=== PATIENT | female | born 1960 | race American Indian/Alaskan Native ===

== ENCOUNTER 2016-12-02 16:08 | Emergency (ER) | payer MEDICARE ==
[2016-12-02] MEDS ORDERED: XYLOCAINE/D5W 2GM/500ML DRIP IV ONE (16:20)
[2016-12-02] MEDS ORDERED: NARCAN 2 MG/2 ML ONE (16:20)
[2016-12-02] MEDS ORDERED: INTROPIN DRIP 800 MG/D5W 250 ML IV ONE (16:20)
[2016-12-02] MEDS ORDERED: ATROPINE 0.1% (CARDIAC) ONE (16:20)
[2016-12-02] MEDS ORDERED: XYLOCAINE CARDIAC IV ONE (16:20)
[2016-12-02] MEDS ORDERED: SODIUM BICARBONATE IV ONE (16:20)
[2016-12-02] MEDS ORDERED: ADRENALIN ONE (16:20)
[2016-12-02] MEDS ORDERED: MAGNESIUM SULFATE ONE (16:20)
[2016-12-02] MEDS ORDERED: CORDARONE IV ONE (16:20)
[2016-12-02] MEDS ORDERED: D50W (25GM) IV ONE (16:24)
[2016-12-02] MEDS ORDERED: D5W IV ONE (16:40)
[2016-12-02] MEDS ORDERED: XYLOCAINE IV ONE (16:40)
[2016-12-02] MEDS ORDERED: LEVOPHED DRIP 4 MG/NS 250 ML 250 ML IV ONE (16:58)
[2016-12-02] MEDS ORDERED: INTROPIN DRIP 800 MG/D5W 250 ML 250 ML IV ONE (17:04)
--- NOTE | 2016-12-02 17:12 | Emergency Department Report ---
HPI - General Chief Complaint: Dyspnea/Respdistress Time Seen by Provider: 12/02/16 17:02 - HPI HPI: Room 2 The patient is a 56-year-old female presenting with a chief complaint of unresponsiveness. Per EMS family reported the patient had been "unresponsive" for several days. EMS states the patient was driven by a friend/family member to a pain clinic for help and her current condition. Upon arrival to the pain clinic staff contacted EMS. EMS states upon their arrival they found the patient slumped over in the car breathing approximately 8 times a minute. Upon arrival to the ED while attempting to gain vascular access the patient entered PEA and ACLS protocols were initiated. The patient was intubated by EMS and a left femoral central line was placed by myself Location: The cardiovascular system, respiratory system Duration: [see above] Quality: Unresponsive Severity: Severe Modifying factors: [see above] Context: [see above] Mode of transportation: [not driving] ED Past Medical Hx - Past Medical History Previous Medical History?: No Hx Congestive Heart Failure: Yes - Surgical History Additional Surgical History: Unknown - Family History Family history: no significant - Social History Smoking Status: Unknown if ever smoked ED Review of Systems ROS: Stated complaint: UNRESPONSIVE Other details as noted in HPI Comment: Unobtainable due to pts medical conditions Physical Exam - Physical Exam Vital Signs: Vital Signs 12/02/16 16:10 Pulse Rate 119 H O2 Sat by Pulse 100 Oximetry Physical Exam: GENERAL: The patient is a thin female appearing older than reported age lying on stretcher being bagged via BVM with agonal respirations HEENT: Normocephalic. Atraumatic. NECK: Trachea midline CHEST/LUNGS: Low respiratory rate. After intubation breath sounds equal bilaterally and no spontaneous respirations auscultated at that time HEART/CARDIOVASCULAR: Regular. No heart sounds after intubation ABDOMEN: Abdomen is soft. There is no abdominal distention. SKIN: There is no rash. There is no edema. There is no diaphoresis. NEURO: GCS 3T MUSCULOSKELETAL: There is no evidence of acute injury. ED Course Vital Signs 12/02/16 16:10 Pulse Rate 119 H O2 Sat by Pulse 100 Oximetry ED Medical Decision Making - Differential Diagnosis respiratory failure, cardiac arrest, hypoglycemia Critical care attestation.: If time is entered above; I have spent that time in minutes in the direct care of this critically ill patient, excluding procedure time. ED Disposition Clinical Impression: Cardiac arrest Disposition: MEDICAL FACILITY Is pt being admited?: No Does the pt Need Aspirin: No Condition: Poor Time of Disposition: 17:08 (patient ) Blank Doc - Documentation Documentation: Central line note Consent was unobtainable Location: Attempt was in the right femoral region, successful attempt made in the left femoral region The site was prepped and draped in a sterile fashion Site was anesthetized with lidocaine 1% approximately [3 mL] Landmarks identified and needle introduced until return of [dark nonpulsatile] blood Blood was obtained on third attempt Guidewire introduced using Seldinger technique and triple lumen catheter placed over guidewire There was blood return from [all 3 ports] Catheter was secured to patient by adhesive The patient tolerated procedure well There were two arterial punctures on the right
[2016-12-02 17:35] VITALS: BP 90/61
[2016-12-02] MEDS ORDERED: LEVOPHED DRIP 4 MG/NS 250 ML 250 ML IV SCH (18:00)
== END 2016-12-03 00:10 ==
LOC: ED 16:08
DX: I46.9 Cardiac arrest, cause unspecified (principal); I50.9 Heart failure, unspecified
CPT/HCPCS: 36556; 82962; 92950; 99285; J0171; J0282; J0461; J1265; J2001; J2310; J3475